=== PATIENT | male | born 1950 | race Caucasian/White ===

== ENCOUNTER 2020-09-20 19:02 | Emergency (ER) | payer MEDICARE ==
[2020-09-20] MEDS ORDERED: VENTOLIN HFA 66.7 GM INH (21:55)
== END 2020-09-20 23:50 | disposition home or self-care (01) ==
LOC: ER1 19:02
DX: Z23 Encounter for immunization (principal); U07.1 COVID-19; E11.9 Type 2 diabetes mellitus without complications; I10 Essential (primary) hypertension; Z79.84 Long term (current) use of oral hypoglycemic drugs
CPT/HCPCS: 0240U; 71046; 87081; 87880; 96374; 99283; J1100; M0245

== ENCOUNTER 2020-09-28 22:12 | Inpatient (IN) | payer MEDICARE ==
[~2020-09-28] VITALS: Ht 182.9 cm; Wt 117.9 kg
[~2020-09-28 22:12] MED LIST: VENTOLIN HFA 66.7 GM INH
[2020-09-28 23:55] LABS: RED BLOOD COUNT 4.7 M/UL (4.20-5.50); WHITE BLOOD COUNT 4.9 K/UL (4.5-11.0)
[2020-09-29 00:19] LABS: BUN/CREATININE RATIO 18 (0-10)
[2020-09-29 04:46] LABS: HEMOGLOBIN 13.6 gm/dl (14.0-17.5); RED BLOOD COUNT 4.56 M/UL (4.20-5.50); WHITE BLOOD COUNT 5.5 K/UL (4.5-11.0)
[2020-09-29 05:07] LABS: BUN/CREATININE RATIO 19 (0-10)
[2020-09-29] MEDS ORDERED: VENTOLIN HFA 66.7 GM INH (10:30)
[2020-09-29] MEDS ORDERED: BUMETANIDE1 MG PO (10:30)
[2020-09-29] MEDS ORDERED: JANUMET XR 50-1 EACH PO (10:30)
[2020-09-29] MEDS ORDERED: ATORVASTATIN CA10 MG PO (10:31)
[2020-09-29] MEDS ORDERED: FLOMAX 0.4 MG0.4 MG PO (10:32)
[2020-09-29] MEDS ORDERED: FAMOTIDINE20 MG PO (10:32)
[2020-09-29] MEDS ORDERED: CARVEDILOL6.25 MG PO (10:32)
[2020-09-29] MEDS ORDERED: FLUOXETINE HCL40 MG PO (10:33)
[2020-09-29] MEDS ORDERED: K-DUR TAB 20 M20 MEQ PO (10:33)
[2020-09-29] MEDS ORDERED: LEVEMIR FL100 UNIT/1 SQ (10:34)
[2020-09-29] MEDS ORDERED: LISINOPRIL30 MG PO (10:35)
[2020-09-29] MEDS ORDERED: NOVOLOG FL100 UNIT/1 SQ (10:36)
[2020-09-29] MEDS ORDERED: VITAMIN D350 MCG PO (10:37)
[2020-09-30 04:30] LABS: HEMOGLOBIN 13.9 gm/dl (14.0-17.5); RED BLOOD COUNT 4.68 M/UL (4.20-5.50); WHITE BLOOD COUNT 4.4 K/UL (4.5-11.0)
[2020-09-30 05:07] LABS: BUN/CREATININE RATIO 29 (0-10)
[2020-10-01 05:18] LABS: HEMOGLOBIN 13.6 gm/dl (14.0-17.5); RED BLOOD COUNT 4.57 M/UL (4.20-5.50); WHITE BLOOD COUNT 5.3 K/UL (4.5-11.0)
[2020-10-01 05:39] LABS: BUN/CREATININE RATIO 27 (0-10)
[2020-10-02 03:55] LABS: HEMOGLOBIN 13.6 gm/dl (14.0-17.5); RED BLOOD COUNT 4.89 M/UL (4.20-5.50); WHITE BLOOD COUNT 6.1 K/UL (4.5-11.0)
[2020-10-02 04:08] LABS: BUN/CREATININE RATIO 25 (0-10)
[2020-10-03 12:34] LABS: HEMOGLOBIN 15.2 gm/dl (14.0-17.5); RED BLOOD COUNT 5.08 M/UL (4.20-5.50)
[2020-10-03 12:35] LABS: WHITE BLOOD COUNT 9.5 K/UL (4.5-11.0)
[2020-10-03 12:47] LABS: BUN/CREATININE RATIO 26 (0-10)
[2020-10-04 05:26] LABS: HEMOGLOBIN 15.3 gm/dl (14.0-17.5); RED BLOOD COUNT 5.15 M/UL (4.20-5.50)
[2020-10-04 05:58] LABS: BUN/CREATININE RATIO 23 (0-10)
[2020-10-05 04:27] LABS: HEMOGLOBIN 13.7 gm/dl (14.0-17.5); RED BLOOD COUNT 4.64 M/UL (4.20-5.50); WHITE BLOOD COUNT 7.2 K/UL (4.5-11.0)
[2020-10-05 04:56] LABS: BUN/CREATININE RATIO 23 (0-10)
[2020-10-05] MEDS ORDERED: LEVOFLOXACIN750 MG PO (13:55)
[2020-10-05] MEDS ORDERED: ELIQUIS 5 MG TAB5 MG PO (13:55)
[2020-10-05] MEDS ORDERED: DECADRON6 MG PO (13:55)
== END 2020-10-05 17:12 | disposition home or self-care (01) | DRG 177 ==
LOC: ER1 22:12 → MED SURG 4 09-29 00:39 → CDU 09-29 00:39 → MED SURG 4 09-29 01:05
PROVIDERS: Family Medicine; Internal Medicine; ADMIT Internal Medicine
PROC: 3E0333Z Introduction of Anti-inflammatory into Peripheral Vein, Percutaneous Approach (ICD-10-PCS; 2020-09-29)
PROC: XW033E5 Introduction of Remdesivir Anti-infective into Peripheral Vein, Percutaneous Approach, New Technology Group 5 (ICD-10-PCS; 2020-09-29)
PROC: 8E0ZXY6 Isolation (ICD-10-PCS; principal; 2020-09-30)
PROC: XW13325 Transfusion of Convalescent Plasma (Nonautologous) into Peripheral Vein, Percutaneous Approach, New Technology Group 5 (ICD-10-PCS; principal; 2020-09-30)
PROC: B24BZZ4 Ultrasonography of Heart with Aorta, Transesophageal (ICD-10-PCS; 2020-10-02)
DX: U07.1 COVID-19 (principal); J96.01 Acute respiratory failure with hypoxia; J15.9 Unspecified bacterial pneumonia; J12.82 Pneumonia due to coronavirus disease 2019; E87.1 Hypo-osmolality and hyponatremia; A09 Infectious gastroenteritis and colitis, unspecified; I45.2 Bifascicular block; E87.2 Acidosis; Z66 Do not resuscitate; I10 Essential (primary) hypertension; E66.9 Obesity, unspecified; I08.2 Rheumatic disorders of both aortic and tricuspid valves; E78.5 Hyperlipidemia, unspecified; E83.39 Other disorders of phosphorus metabolism; N40.0 Benign prostatic hyperplasia without lower urinary tract symptoms; Z96.611 Presence of right artificial shoulder joint; Z96.653 Presence of artificial knee joint, bilateral; E11.65 Type 2 diabetes mellitus with hyperglycemia; I48.91 Unspecified atrial fibrillation; E86.0 Dehydration; Z83.3 Family history of diabetes mellitus; Z79.01 Long term (current) use of anticoagulants; Z99.81 Dependence on supplemental oxygen; Z68.35 Body mass index [BMI] 35.0-35.9, adult; Z79.4 Long term (current) use of insulin; Z79.899 Other long term (current) drug therapy
CPT/HCPCS: ECHO; 36415; 36600; 71045; 80053; 80202; 82550; 82553; 82728; 82803; 82962; 83605; 83615; 83735; 83874; 83880; 84100; 84439; 84443; 84484; 85025; 85027; 85379; 86140; 86900; 86901; 86927; 87205; 93005; 93306; 94640; 94760; 96374; 99285; C9113; J0696; J1100; J1650; J2185; J3370; J7030; J7050; J7070; Q9967

== ENCOUNTER 2020-10-07 02:50 | Emergency (ER) | payer MEDICARE ==
[~2020-10-07 02:50] MED LIST changes: +ATORVASTATIN CA10 MG PO; +BUMETANIDE1 MG PO; +CARVEDILOL6.25 MG PO; +DECADRON6 MG PO; +ELIQUIS 5 MG TAB5 MG PO; +FAMOTIDINE20 MG PO; +FLOMAX 0.4 MG0.4 MG PO; +FLUOXETINE HCL40 MG PO; +JANUMET XR 50-1 EACH PO; +K-DUR TAB 20 M20 MEQ PO; +LEVEMIR FL100 UNIT/1 SQ; +LEVOFLOXACIN750 MG PO; +LISINOPRIL30 MG PO; +NOVOLOG FL100 UNIT/1 SQ; +VITAMIN D350 MCG PO
[2020-10-07 03:43] LABS: HEMOGLOBIN 16.8 gm/dl (14.0-17.5); RED BLOOD COUNT 5.56 M/UL (4.20-5.50); WHITE BLOOD COUNT 14.8 K/UL (4.5-11.0)
[2020-10-07] MEDS ORDERED: PERCOCET 5/325 T1 EA PO (07:53)
== END 2020-10-07 10:06 | disposition home or self-care (01) ==
LOC: ER1 02:50
PROVIDERS: Family Medicine
DX: R10.9 Unspecified abdominal pain (principal); R07.9 Chest pain, unspecified; E11.9 Type 2 diabetes mellitus without complications; I10 Essential (primary) hypertension; Z86.16 Personal history of COVID-19
CPT/HCPCS: 80053; 81001; 82550; 82553; 83605; 83690; 83874; 84484; 85025; 85379; 93005; 99285; J1885; Q9967